=== PATIENT | male | born 1965 | race Caucasian/White ===

== ENCOUNTER 2019-09-25 09:31 | Emergency (ER) | payer MEDICAID ==
--- NOTE | 2019-09-25 10:15 | EDM.PDOC ---
ED HPI GENERAL MEDICAL PROBLEM - General Chief Complaint: Abdominal Pain Stated Complaint: ABD TROUBLES Time Seen by Provider: 09/25/19 10:04 Source of Information: Reports: Patient - History of Present Illness INITIAL COMMENTS - FREE TEXT/NARRATIVE: Carlos is a 54 yo male with no known PMH who presents to the ED with c/o "stomach issues." He reports that for the past few days he has not "had a good bowel movement." Also reports he has not been able to urinate per normal. Reports he goes smaller than normal amounts. Last urinated small amount at 7 am this morning. Reports he has mild abdominal pain, that seems to "move locations " in his lower abdomen. Rates pain 6/10. Denies any dysuria, hematuria, bloody/ dark stools, weakness, N/V, fatigue. Does report he is also more short of breath than normal. Does admit to chronic SOB, but seems to be slightly worse the last 2 days. Denies any fever, cough, chest pain, weight loss, hemoptysis. Is afebrile upon presentation. Does not have thermometer at home. Has not been in contact with anyone with known COVID- 19. Has been social distancing for the last 5-6 weeks. Has not travelled anywhere. Reports he is a 1-2 ppd smoker for at least the past 30 years. Also reports he drinks ~ 6 alcoholic beverages daily. Denies any illicit drug use. Has not seen a medical provider in 10+ years. Associated Symptoms: Reports: Loss of Appetite, Shortness of Breath. Denies: Confusion, Chest Pain, Cough, cough w sputum, Diaphoresis, Fever/Chills, Headaches, Malaise, Nausea/Vomiting, Rash, Seizure, Syncope, Weakness Lower Abdominal Pain Score (Numeric/FACES): 4 - Related Data Allergies Allergy/AdvReac Type Severity Reaction Status Date / Time No Known Allergies Allergy Verified 09/25/19 09:32 Home Meds: Home Meds . [No Known Home Meds] 09/25/19 [History] Past Medical History - Past Surgical History HEENT Surgical History: Reports: Tonsillectomy Social & Family History - Family History GI: Reports: Other (See Below) Other GI Family History: father had appendectomy - Tobacco Use Smoking Status *Q: Current Every Day Smoker Years of Tobacco use: 30 Packs/Tins Daily: 2 - Caffeine Use Caffeine Use: Reports: Coffee - Alcohol Use Days Per Week of Alcohol Use: 7 Number of Drinks Per Day: 6 Total Drinks Per Week: 42 - Recreational Drug Use Recreational Drug Use: No ED ROS GENERAL - Review of Systems Review Of Systems: See Below Constitutional: Reports: Decreased Appetite. Denies: Fever, Chills, Malaise, Weakness, Fatigue HEENT: Reports: No Symptoms Respiratory: Reports: Shortness of Breath. Denies: Wheezing, Pleuritic Chest Pain, Cough, Sputum, Hemoptysis Cardiovascular: Reports: Dyspnea on Exertion. Denies: Chest Pain, Edema, Lightheadedness Endocrine: Denies: Fatigue, High Glucose, Low Glucose, Polydypsia, Polyuria GI/Abdominal: Reports: Abdominal Pain, Diarrhea, Decreased Appetite. Denies: Black Stool, Bloody Stool, Constipation, Distension, Hematemesis, Hematochezia, Nausea, Vomiting : Reports: Urinary Retention (small amounts of urine). Denies: Dysuria, Flank Pain, Frequency, Hematuria, Incontinence, Urgency Musculoskeletal: Reports: No Symptoms Skin: Reports: No Symptoms, Other (dark skin, patient reports this is baseline) Neurological: Reports: No Symptoms. Denies: Confusion, Dizziness, Headache, Numbness, Tingling, Weakness ED EXAM, GI/ABD - Physical Exam Exam: See Below Exam Limited By: No Limitations General Appearance: Alert, WD/WN, No Apparent Distress EKG INTERPRETATION EKG Date: 09/25/19 Rhythm: Other (Sinus Tachycardia) Comparison: NA - No Prior EKG Course - Vital Signs Last Recorded V/S: Last Vital Signs Temp 98.5 F 09/25/19 12:15 Pulse 116 H 09/25/19 12:15 Resp 28 H 09/25/19 12:15 BP 175/97 H 09/25/19 12:15 Pulse Ox 97 09/25/19 12:15 - Orders/Labs/Meds Labs: Laboratory Tests 09/25/19 09/25/19 09/25/19 Range/Units 09:39 09:40 12:05 WBC 16.9 H (5.0-10.0) 10^3/uL RBC 3.53 L (4.50-6.00) 10^6/uL Hgb 11.4 L (14.0-18.0) g/dL Hct 33.3 L (40.0-54.0) % MCV 94.3 H (82.0-94.0) fL MCH 32.3 H (27.0-32.0) pg MCHC 34.2 (33.0-38.0) g/dL RDW Coeff of Catia 13.2 (11.0-15.0) % Plt Count 338 (150-400) 10^3/uL Neut % (Auto) 90.6 H (35-85) % Lymph % (Auto) 2.2 L (10-55) % Mcmullen % (Auto) 7.0 (0-16) % Eos % (Auto) 0 (0-5) % Baso % (Auto) 0.2 (0-3) % Neut # (Auto) 15.31 H (1.80-7.00) 10^3/uL Lymph # (Auto) 0.38 L (1.00-4.80) 10^3/uL Mcmullen # (Auto) 1.19 H (0.00-0.80) 10^3/uL Eos # (Auto) 0.00 (0.00-0.45) 10^3/uL Baso # (Auto) 0.03 10^3/uL Sodium 132 L (136-145) mEq/L Potassium 6.4 H* (3.5-5.0) mEq/L Chloride 92 L (98-106) mEq/L Carbon Dioxide 8 L* (21-32) mmol/L BUN 132 H* (7-18) mg/dL Creatinine 21.6 H* (0.7-1.3) mg/dL Est Cr Clr Drug Dosing 3.72 mL/min Estimated GFR (MDRD) 2 L (>=60) mL/min Glucose 78 (75-99) mg/dL Calcium 9.9 (8.4-10.1) mg/dL Total Bilirubin 0.6 (0.0-1.0) mg/dL AST 7 L (15-37) U/L ALT 12 (12-78) U/L Alkaline Phosphatase 54 (46-116) U/L Troponin I 0.098 H (0.00-0.06) ng/mL C-Reactive Protein 36.0 H (0.2-0.8) mg/dL Total Protein 7.8 (6.4-8.2) g/dL Albumin 3.1 L (3.4-5.0) g/dL Amylase 112 (25-115) U/L Lipase 83 (73-393) U/L Urine Color Yellow (YELLOW) Urine Appearance Slightly cloudy (CLEAR) Urine pH 5.5 (4.5-8.0) Ur Specific Wilsons 1.010 (1.003-1.020) Urine Protein 30 H (NEGATIVE) mg/dL Urine Glucose (UA) Negative (NEGATIVE) mg/dL Urine Ketones 15 H (NEGATIVE) mg/dL Urine Occult Blood Large H (NEGATIVE) Urine Nitrite Negative (NEGATIVE) Urine Bilirubin Negative (NEGATIVE) Urine Urobilinogen 0.2 (0.2-1.0) EU/dL Ur Leukocyte Esterase Negative (NEGATIVE) Urine RBC 10-20 H (0-5) /HPF Urine WBC 0-5 (0-5) /HPF Meds: Medications Discontinued Medications Generic Name Dose Route Start Last Admin Trade Name Freq PRN Reason Stop Dose Admin Albuterol 2.5 mg 09/25/19 11:09 09/25/19 11:43 Proventil Neb Soln NEB 09/25/19 11:10 2.5 mg ONETIME ONE Administration Calcium Gluconate 1 gm 09/25/19 11:05 09/25/19 11:45 Calcium Gluconate IVPUSH 09/25/19 11:06 1 gm ONETIME ONE Administration Calcium Gluconate Confirm 09/25/19 10:58 09/25/19 11:45 Calcium Gluconate Administered 09/25/19 10:59 Not Given Dose 1 gm .ROUTE .STK-MED ONE Dextrose/Water 50 ml 09/25/19 11:08 09/25/19 11:45 Dextrose 50% In Water IVPUSH 09/25/19 11:09 50 ml ONETIME ONE Administration Furosemide 40 mg 09/25/19 11:08 09/25/19 11:45 Lasix IVPUSH 09/25/19 11:09 40 mg ONETIME ONE Administration Sodium Chloride 1,000 mls @ 150 mls/hr 09/25/19 12:30 09/25/19 12:24 Normal Saline IV 150 mls/hr ASDIRECTED GODWIN Administration Insulin Human Lispro 10 unit 09/25/19 11:15 09/25/19 11:57 Humalog SUBCUT 10 units STAT GODWIN Administration - Re-Assessments/Exams Free Text/Narrative Re-Assessment/Exam: 09/25/19 11:06 Critical labs noted. Consulted with [facility] emergency room physician, Dr. Chen, who accepted the patient for transfer. Will hold off on imaging at this time. Recommends placing Bridges catheter, 1 amp D50, 10 units insulin, 1 g calcium gluconate, albuterol neb, and 40 mg lasix prior to transfer. 09/25/19 12:03 Awaiting transfer crew. All medications given. Bridges catheter placed with ~ 150 mL clear yellow urine returned. Patient resting comfortable. Did have improvement in breathing/wheezing with albuterol neb. 09/25/19 12:10 [facility] accepted patient for transfer. Risks and benefits of transfer discussed with patient. Risks include but not limited to worsening of condition, MVA, , cardiac arrest enroute. Benefits of transfer include higher level of care, dialysis, nephrology. Risks of nontransfer include worsening of condition, , no specialized care. Benefits of nontransfer include convenience. Patient verbalized understanding and was agreeable with transfer. Departure - Departure Time of Disposition: 12:22 Disposition: DC/Tfer to [facility] 02 Condition: Poor Clinical Impression: Hyperkalemia Acute kidney failure Qualifiers: Acute renal failure type: unspecified Qualified Code(s): N17.9 - Acute kidney failure, unspecified Hypertension Qualifiers: Hypertension type: unspecified Qualified Code(s): I10 - Essential (primary) hypertension - Discharge Information *PRESCRIPTION DRUG MONITORING PROGRAM REVIEWED*: Not Applicable *COPY OF PRESCRIPTION DRUG MONITORING REPORT IN PATIENT ANGELICA: Not Applicable Referrals: PCP,None [Primary Care Provider] - Forms: ED Department Discharge Sepsis Event Note - Evaluation Sepsis Screening Result: No Definite Risk - Focused Exam Date Exam was Performed: 09/26/19 Time Exam was Performed: 14:36 - Problem List & Annotations (1) Acute kidney failure SNOMED Code(s): 22186135 Code(s): N17.9 - ACUTE KIDNEY FAILURE, UNSPECIFIED Status: Acute Qualifiers: Acute renal failure type: unspecified Qualified Code(s): N17.9 - Acute kidney failure, unspecified (2) Hyperkalemia SNOMED Code(s): 36174507 Code(s): E87.5 - HYPERKALEMIA Status: Acute (3) Hypertension SNOMED Code(s): 60065113 Code(s): I10 - ESSENTIAL (PRIMARY) HYPERTENSION Status: Chronic Qualifiers: Hypertension type: unspecified Qualified Code(s): I10 - Essential (primary ) hypertension (4) COPD (chronic obstructive pulmonary disease) SNOMED Code(s): 70249308 Code(s): J44.9 - CHRONIC OBSTRUCTIVE PULMONARY DISEASE, UNSPECIFIED Status : Acute Qualifiers: COPD type: unspecified COPD Qualified Code(s): J44.9 - Chronic obstructive pulmonary disease, unspecified - Assessment/Plan Assessment:: KITTY Hyperkalemia Hypertension COPD Plan: Patient presenting with pleather of symptoms. Labs revealing critical BUN of 138, creatinine of 21.6, K of 6.4, CO2 8, and Na 133. WBC 16.4. CRP 36. Consulted with [facility] physician who accepted patient for transfer Will be transferred via [facility] to [facility] emergency room for further workup and treatment Patient discharged from facility in stable condition
[2019-09-25] MEDS ORDERED: Calcium Gluconate 10% 1 GM/10 ML SDV ONE (10:58)
[2019-09-25] MEDS ORDERED: Calcium Gluconate 10% 1 GM/10 ML SDV IVPUSH ONE (11:05)
[2019-09-25] MEDS ORDERED: Furosemide 40 MG/4 ML VIAL IVPUSH ONE (11:08)
[2019-09-25] MEDS ORDERED: 50% Dextrose in Water 50 ML Syringe IVPUSH ONE (11:08)
[2019-09-25] MEDS ORDERED: Albuterol 0.083% 2.5 MG/3 ML Neb Soln NEB ONE (11:09)
[2019-09-25] MEDS ORDERED: Insulin Lispro 100 Units/ML 3 ML Vial SUBCUT SCH (11:15)
[2019-09-25] MEDS ORDERED: Sodium Chloride 0.9% 1,000 ML IV SCH (12:30)
== END 2019-09-25 13:07 ==
LOC: CC.ED 09:31
DX: N17.9 Acute kidney failure, unspecified (principal); I10 Essential (primary) hypertension; E87.5 Hyperkalemia; F17.210 Nicotine dependence, cigarettes, uncomplicated
CPT/HCPCS: 36415; 51702; 80053; 81001; 82150; 83690; 84484; 85025; 86140; 93005; 94640; 96374; 96375; 99285; J0610; J1815; J1940; J7030; J7613-GY

== ENCOUNTER → 2020-10-03 | Day surgery (SDC) | payer MEDICAID ==
[~2020-10-03] MED LIST: Lactated Ringers 1,000 ML IV SCH; Lidocaine 2% 100 MG/5 ML Syringe ONE; Propofol 200 MG/20 ML SDV ONE; fentaNYL 100 MCG/2 ML SDV ONE
--- NOTE | 2020-10-06 09:37 | OR ---
DATE OF OPERATION: 10/03/2020 PREOPERATIVE DIAGNOSIS: 1. ALTERED BOWEL HABITS. 2. ABDOMINAL PAIN. POSTOPERATIVE DIAGNOSIS: 1. ALTERED BOWEL HABITS. 2. ABDOMINAL PAIN. SURGEON: Alireza Gonzales MD PROCEDURE: DIAGNOSTIC COLONOSCOPY WITH SNARE POLYPECTOMY X4, FORCEPS POLYP REMOVAL X1. ANESTHESIA: MAC. COMPLICATIONS: None. SPECIMEN: Five separate tubular adenomas, see report. FINDINGS: 1. Full-length diagnostic colonoscopy. 2. Tubular adenomas x4, all 5 to 6 mm or less. 3. Tubulovillous adenoma, approximately 0.5 cm. RECOMMENDATIONS: Followup colonoscopy in 3 years. INDICATIONS: The patient has been having some altered bowel habits in the form of stool caliber. He has never had a prior colonoscopy. He was sent for diagnostic scope. DESCRIPTION OF PROCEDURE: The patient was prepped and draped, placed in the left lateral decubitus position. A lubricated Olympus colonoscope was inserted and advanced with ease to the cecum. Direct visualization of the ileocecal valve and appendiceal orifice was accomplished. The bowel prep was adequate. Upon withdrawal of the scope, the cecal pouch appeared benign. Difficult to intubate into his terminal ileum briefly. No gross abnormalities were seen in the distal portion just inside the bowel. The rest of the ascending and transverse colons were benign. The patient did have a small 4 mm flat sessile polyp at the splenic flexure. It was removed with forceps biopsy x2 in its entirety. The rest of the descending colon was benign. In the sigmoid colon at 65 cm to 60 cm, the patient had 2 small tubular adenomas, each removed with a snare and suctioned into polyp traps #1 and #2 respectively. At 40 cm, the patient had a third left-sided polyp. This was more flat and villous. It was approximately 5 to 6 mm. It was removed with a snare and suctioned into polyp trap #3. The last polyp was at 30 cm, also snared and suctioned into polyp trap #4. It was a 4 to 5 mm tubular adenoma. The rectosigmoid junction otherwise appeared benign. The rectal vault was unremarkable. Retroflexion showed no perianal lesions. Throughout the colon, I could find no stricturing or signs for etiology of his smaller stool caliber. Air was suctioned and the scope removed without complication. ALEJANDRO/TALON /[id number]
== END ==
LOC: CC.SDS 09:56
PROVIDERS: ATTEND Family Medicine
DX: D12.3 Benign neoplasm of transverse colon (principal); D12.5 Benign neoplasm of sigmoid colon; F17.210 Nicotine dependence, cigarettes, uncomplicated; N18.30 Chronic kidney disease, stage 3 unspecified; Z88.0 Allergy status to penicillin; Z98.890 Other specified postprocedural states
CPT/HCPCS: 00812; J2704; J3010; J7120